=== PATIENT | female | born 1960 | race Caucasian/White ===

== ENCOUNTER 2022-11-11 15:39 | Emergency (ER) | payer BC ==
[~2022-11-11] VITALS: Ht 167.6 cm; Wt 72.6 kg
[2022-11-11 15:52] VITALS: BP_SYST 131; PULSE 85; RESP 18; TEMP 98; O2SAT 100
[2022-11-11] MEDS ORDERED: DIPHTH,PERTUSS(ACELL),TET VAC 0.5 ML VIAL (Tdap) I.M. ONE (18:15)
[2022-11-11 18:29] VITALS: BP_SYST 127; PULSE 80; RESP 20; TEMP 98; O2SAT 99
== END 2022-11-11 18:29 | disposition home or self-care (01) ==
LOC: SED 15:39
DX: S01.111A Laceration without foreign body of right eyelid and periocular area, initial encounter (principal); Z79.899 Other long term (current) drug therapy; W01.0XXA Fall on same level from slipping, tripping and stumbling without subsequent striking against object, initial encounter; Y93.89 Activity, other specified; Y92.89 Other specified places as the place of occurrence of the external cause; Y99.8 Other external cause status
CPT/HCPCS: 90715; 99283